=== PATIENT | female | born 2000 | race Caucasian/White ===

== ENCOUNTER 2024-08-06 14:17 | Emergency (ER) | payer OTHER, SELFPAY ==
--- NOTE | 2024-08-06 14:45 | EDPHYS ---
Physician Documentation [facility] Name: Shanna Hyatt Age: 23 yrs Sex: Female : 2000 Arrival Date: 08/06/2024 Time: 14:17 Bed IW6 Private MD: ED Physician Dax Stokes HPI: 08/06 14:48 This 23 yrs old Female presents to ER via Ambulatory with complaints of Ear Pain, Jaw sb4 Pain. 14:49 Patient reports right-sided jaw pain for 2 weeks now but this morning woke up with sb4 right ear pain. She states that she has been having sinus congestion for several days as well. States that she has been taking allergy medicine and nasal sprays without significant relief in symptoms. Denies any drainage from the ear or known redness in the gums. States that she has had her wisdom teeth removed. Denies any bad or decaying teeth. Historical: - Allergies: 14:35 PENICILLINS; aa5 - PMHx: 14:35 seasonal allergies; aa5 - PSHx: 14:35 None; aa5 - Immunization history:: Adult Immunizations unknown. - Infectious Disease History:: Denies. - Social history:: Smoking status: Reported history of juuling and/or vaping. ROS: 14:49 Constitutional: Negative for fever, chills, and weight loss, sb4 14:49 ENT: Positive for ear pain, sinus congestion, sinus pain, 14:49 All other systems are negative, Exam: 14:50 Constitutional: This is a well developed, well nourished patient who is awake, alert, sb4 and in no acute distress. Head/Face: Normocephalic, atraumatic. Eyes: Extra-ocular motions intact. Periorbital areas with no swelling, redness, or edema. ENT: Mucous membranes moist. Skin: Warm, dry with normal turgor. Normal color with no rashes, no lesions, and no evidence of cellulitis. 14:50 ENT: TM's: fluid levels, on the right, Nose: is normal, Mouth: is normal, Posterior pharynx: is normal, Vital Signs: 14:34 BP 134 / 78; Pulse 71; Resp 18 S; Temp 98.3(O); Pulse Ox 97% on R/A; Weight 124.28 kg aa5 (R); Height 5 ft. 8 in. (R); 14:34 Body Mass Index 41.66 (124.28 kg, 172.72 cm) aa5 MDM: 14:33 Medical Screening Exam initiated sb4 14:50 Data reviewed: vital signs, nurses notes, and as a result, I will discharge patient. sb4 Counseling: I had a detailed discussion with the patient and/or guardian regarding the historical points, exam findings, and any diagnostic results supporting the discharge/admit diagnosis, the need for outpatient follow up, an ENT specialist, to return to the emergency department if symptoms worsen or persist or if there are any questions or concerns that arise at home. Administered Medications: No medications were administered Disposition: 17:21 Co-signature as Attending Physician, Dax Stokes MD I reviewed the patient's care rn provided by the Advanced Practice Provider and agree with the diagnosis and treatment plan. Disposition Summary: 08/06/24 14:45 Discharge Ordered Notes: Location: Home sb4 Problem: an ongoing problem sb4 Symptoms: are unchanged sb4 Condition: Stable sb4 Diagnosis - Other acute sinusitis sb4 Followup: sb4 - With: Jojo Pugh MD - When: 1 week - Reason: Recheck today's complaints, Re-evaluation by your physician Discharge Instructions: - Discharge Summary Sheet sb4 - Sinusitis, Adult sb4 - How to Perform a Sinus Rinse, [id number] sb4 Forms: - Antibiotic Education sb4 - Patient Portal Instructions sb4 - Leadership Thank You Letter sb4 Prescriptions: - Doxycycline Hyclate 100 mg Oral Tablet - take 1 tablet ORAL route every 12 hours; 20 tablet; Refills: 0, Product sb4 Selection Permitted Signatures: Dax Stokes MD MD rn Calderon, Audri, RN RN [id number] Beena Cheney PA-C PA-C sb4 Corrections: (The following items were deleted from the chart) 14:36 14:35 Allergies: NKDA; evan gordon
--- NOTE | 2024-08-06 14:45 | ER ---
Nurse's Notes [facility] Name: Shanna Hyatt Age: 23 yrs Sex: Female : 2000 Arrival Date: 08/06/2024 Time: 14:17 Bed IW6 Private MD: Diagnosis: Other acute sinusitis Presentation: 08/06 14:34 Chief complaint: Patient states: "I was sleeping and I woke up with my right ear aa5 hurting and my right jaw hurting really bad". Coronavirus screen: At this time, the client does not indicate any symptoms associated with coronavirus-19. Ebola Screen: Patient denies travel to an Ebola-affected area in the 21 days before illness onset. Initial Sepsis Screen: Does the patient meet any 2 criteria? No. Patient's initial sepsis screen is negative. Does the patient have a suspected source of infection? No. Patient's initial sepsis screen is negative. Risk Assessment: Do you want to hurt yourself or someone else? Patient reports no desire to harm self or others. Onset of symptoms was August 06, 2024. 14:34 Method Of Arrival: Ambulatory aa5 14:34 Acuity: ERROL 4 aa5 Historical: - Allergies: 14:35 PENICILLINS; aa5 - PMHx: 14:35 seasonal allergies; aa5 - PSHx: 14:35 None; aa5 - Immunization history:: Adult Immunizations unknown. - Infectious Disease History:: Denies. - Social history:: Smoking status: Reported history of juuling and/or vaping. Screenin:34 [facility] ED Fall Risk Assessment (Adult) History of falling in the last 3 months, aa5 including since admission No falls in past 3 months (0 pts) Confusion or Disorientation No (0 pts) Intoxicated or Sedated No (0 pts) Impaired Gait No (0 pts) Mobility Assist Device Used No (0 pt) Altered Elimination No (0 pt) Score/Fall Risk Level 0 - 2 = Low Risk Oriented to surroundings, Maintained a safe environment. Abuse screen: Denies threats or abuse. Nutritional screening: No deficits noted. Tuberculosis screening: No symptoms or risk factors identified. Assessment: 14:34 General: Appears comfortable, Behavior is calm, cooperative. Pain: Complains of pain in aa5 right ear and right jaw. Neuro: Level of Consciousness is awake, alert, obeys commands, Oriented to person, place, time, situation. Cardiovascular: Patient's skin is warm and dry. Respiratory: Airway is patent Respiratory effort is even, unlabored, Respiratory pattern is regular, symmetrical. GI: No signs and/or symptoms were reported involving the gastrointestinal system. : No signs and/or symptoms were reported regarding the genitourinary system. EENT: Reports pain in right ear. Derm: Skin is pink, warm \\T\\ dry. Musculoskeletal: Range of motion: intact in all extremities. Vital Signs: 14:34 BP 134 / 78; Pulse 71; Resp 18 S; Temp 98.3(O); Pulse Ox 97% on R/A; Weight 124.28 kg aa5 (R); Height 5 ft. 8 in. (R); 14:34 Body Mass Index 41.66 (124.28 kg, 172.72 cm) aa5 ED Course: 14:20 Patient arrived in ED. ra3 14:25 Beena Cheney PA-C [facility]. sb4 14:25 Dax Stokes MD is Attending Physician. sb4 14:33 Arm band placed on. aa5 14:33 Patient has correct armband on for positive identification. Adult w/ patient. aa5 14:35 Triage completed. aa5 14:37 No provider procedures requiring assistance completed. Patient did not have IV access aa5 during this emergency room visit. 14:45 Jojo Pugh MD is Referral Physician. sb4 14:50 Jyoti Agarwal, BONNIE is Primary Nurse. aa5 Administered Medications: No medications were administered Medication: 14:47 VIS not applicable for this client. aa5 Outcome: 14:45 Discharge ordered by . sb4 14:47 Discharged to home ambulatory, with family, aa5 14:47 Condition: stable 14:47 Discharge instructions given to patient, Instructed on discharge instructions, follow up and referral plans. medication usage, Demonstrated understanding of instructions, follow-up care, medications, Prescriptions given X 1, 14:50 Patient left the ED. aa5 Signatures: Jyoti Agarwal, RN RN aa5 Beena Cheney PA-C PA-C sb4 María Elena Aguilar ra3 Corrections: (The following items were deleted from the chart) 14:36 14:35 Allergies: NKDA; aa5 aa5
[2024-08-06 14:58] VITALS: BP 134/78; TEMP 98.3; O2SAT 97
== END 2024-08-06 14:50 | disposition home or self-care (01) ==
LOC: ER 14:17
DX: J01.80 Other acute sinusitis (principal)
CPT/HCPCS: 99283

== ENCOUNTER 2025-01-21 12:14 | Emergency (ER) | payer SELFPAY ==
--- NOTE | 2025-01-21 12:29 | ER ---
Nurse's Notes [facility] Name: Shanna Hyatt Age: 24 yrs Sex: Female : 2000 Arrival Date: 01/21/2025 Time: 12:14 Bed IW1 Private MD: Diagnosis: Acute serous otitis media, left ear Presentation: 01/21 12:27 Chief complaint: Patient states: Cough x 4 weeks, left ear pain x 1 day. Coronavirus jl7 screen: At this time, the client does not indicate any symptoms associated with coronavirus-19. Ebola Screen: No symptoms or risks identified at this time. Initial Sepsis Screen: Does the patient meet any 2 criteria? No. Patient's initial sepsis screen is negative. Does the patient have a suspected source of infection? No. Patient's initial sepsis screen is negative. Risk Assessment: Do you want to hurt yourself or someone else? Patient reports no desire to harm self or others. Onset of symptoms was January 20, 2025. 12:27 Method Of Arrival: Ambulatory jl7 12:27 Acuity: ERROL 4 jl7 Triage Assessment: 12:28 General: Appears in no apparent distress. uncomfortable, Behavior is calm, cooperative, jl7 appropriate for age. Pain: Complains of pain in left ear Pain currently is 4 out of 10 on a pain scale. EENT: Reports pain in left ear. 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 - Infectious Disease History:: Denies. - Social history:: Smoking status: Reported history of juuling and/or vaping. Screenin:30 [facility] ED Fall Risk Assessment (Adult) History of falling in the last 3 months, jl7 including since admission No falls in past 3 months (0 pts) Confusion or Disorientation No (0 pts) Intoxicated or Sedated No (0 pts) Impaired Gait No (0 pts) Mobility Assist Device Used No (0 pt) Altered Elimination No (0 pt) Score/Fall Risk Level 0 - 2 = Low Risk Oriented to surroundings, Maintained a safe environment. Abuse screen: Denies threats or abuse. Denies injuries from another. Nutritional screening: No deficits noted. Tuberculosis screening: No symptoms or risk factors identified. Vital Signs: 12:27 BP 124 / 85; Pulse 84; Resp 17; Temp 97; Pulse Ox 100% ; jl7 ED Course: 12:19 Patient arrived in ED. cj3 12:19 Beena Chenye PA-C is [facility]. sb4 12:19 Serena Rubi MD is Attending Physician. sb4 12:28 Triage completed. jl7 12:28 Arm band placed on right wrist. jl7 12:50 Patient has correct armband on for positive identification. Provided Education on: jl7 discharge. 12:51 Slime Bishop RN is Primary Nurse. jl7 12:51 No provider procedures requiring assistance completed. Patient did not have IV access jl7 during this emergency room visit. Administered Medications: No medications were administered Medication: 12:50 VIS not applicable for this client. jl7 Outcome: 12:28 Discharge ordered by . sb4 12:51 Discharged to home ambulatory, jl7 12:51 Condition: stable 12:51 Discharge instructions given to patient, Instructed on discharge instructions, follow up and referral plans. medication usage, Demonstrated understanding of instructions, follow-up care, medications, Prescriptions given X 2, 12:51 Patient left the ED. jl7 Signatures: Slime Bishop RN RN jl7 Beena Cheney PA-C PA-C sb4 Kayley Ponce cj3
--- NOTE | 2025-01-21 12:29 | EDPHYS ---
Physician Documentation [facility] Name: Shanna Hyatt Age: 24 yrs Sex: Female : 2000 Arrival Date: 01/21/2025 Time: 12:14 Bed IW1 Private MD: ED Physician Serena Rubi HPI: 01/21 12:41 This 24 yrs old Female presents to ER via Ambulatory with complaints of Ear Pain, Cough.sb4 12:41 The patient presents with pain, that is acute. The complaints affect the left ear. sb4 Onset: The symptoms/episode began/occurred yesterday. Modifying factors: The symptoms are alleviated by OTC meds. Associated signs and symptoms: Pertinent positives: cough, Pertinent negatives: fever, lightheadedness, nausea, sinus trouble, shortness of breath, sore throat. 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 - Infectious Disease History:: Denies. - Social history:: Smoking status: Reported history of juuling and/or vaping. ROS: 12:41 Constitutional: Negative for fever, chills, and weight loss, sb4 12:41 ENT: Positive for ear pain, 12:41 Respiratory: Positive for cough, 12:41 All other systems are negative, Exam: 12:41 Constitutional: This is a well developed, well nourished patient who is awake, alert, sb4 and in no acute distress. Head/Face: Normocephalic, atraumatic. Eyes: Extra-ocular motions intact. Periorbital areas with no swelling, redness, or edema. Cardiovascular: Regular rate and rhythm with a normal S1 and S2. Respiratory: No increased work of breathing, no retractions or nasal flaring. Skin: Warm, dry with normal turgor. Normal color with no rashes, no lesions, and no evidence of cellulitis. 12:41 ENT: TM's: erythema, that is mild, on the left, fluid levels, on the left, Examination of the other ear shows no obvious abnormality, Vital Signs: 12:27 BP 124 / 85; Pulse 84; Resp 17; Temp 97; Pulse Ox 100% ; jl7 MDM: 12:21 Medical Screening Exam initiated sb4 12:41 Data reviewed: vital signs, nurses notes, and as a result, I will discharge patient. sb4 Counseling: I had a detailed discussion with the patient and/or guardian regarding the historical points, exam findings, and any diagnostic results supporting the discharge/admit diagnosis, the need for outpatient follow up, for definitive care, to return to the emergency department if symptoms worsen or persist or if there are any questions or concerns that arise at home. Administered Medications: No medications were administered Disposition Summary: 01/21/25 12:28 Discharge Ordered Notes: Location: Home sb4 Problem: new sb4 Symptoms: have improved sb4 Condition: Stable sb4 Diagnosis - Acute serous otitis media, left ear sb4 Followup: sb4 - With: Private Physician - When: 1 week - Reason: Recheck today's complaints, Re-evaluation by your physician Discharge Instructions: - Discharge Summary Sheet sb4 - Otitis Media, Adult sb4 Forms: - Antibiotic Education sb4 - Patient Portal Instructions sb4 - Leadership Thank You Letter sb4 Prescriptions: - cefdinir 300 mg Oral capsule - take 1 capsule ORAL route every 12 hours for 7 days; 14 capsule; Refills: 0, sb4 Product Selection Permitted - phenylephrine HCl 5 mg Oral tablet - take 1 tablet ORAL route every 4 to 6 hours as needed for nasal congestion; 20 sb4 tablet; Refills: 0, Product Selection Permitted Addendum: 01/23/2025 07:09 Co-signature as Attending Physician, Serena Rubi MD I agree with the assessment and g b1 plan of care. I reviewed the patient's care provided by the Advanced Practice Provider and agree with the diagnosis and treatment plan. Signatures: Slime Bishop, RN RN jl7 Beena Cheney PA-C PA-C sb4 Serena Rubi MD MD gb1
[2025-01-21 13:16] VITALS: BP 124/85; TEMP 97; O2SAT 100
== END 2025-01-21 12:51 | disposition home or self-care (01) ==
LOC: ER 12:14
DX: H65.02 Acute serous otitis media, left ear (principal); R05.9 Cough, unspecified
CPT/HCPCS: 99283